=== PATIENT | female | born 1980 | race Caucasian/White ===

== ENCOUNTER 2019-12-30 13:45 | Emergency (ER) | payer OTHER ==
[~2019-12-30] VITALS: Ht 165.1 cm; Wt 54.5 kg
[2019-12-30 21:20] VITALS: BP 138/78
== END 2019-12-30 22:55 | disposition home or self-care (01) ==
LOC: EMS 13:45
DX: R45.851 Suicidal ideations (principal); F19.10 Other psychoactive substance abuse, uncomplicated; F17.200 Nicotine dependence, unspecified, uncomplicated
CPT/HCPCS: Z7502